=== PATIENT | female | born 1960 | race Caucasian/White ===

== ENCOUNTER 2022-11-06 11:44 | Emergency (ER) | payer OTHER, SELFPAY ==
[2022-11-06 11:56] VITALS: BP 122/72; PULSE 68; RESP 18; TEMP 36.3; O2SAT 100; BMI 19.1
--- NOTE | 2022-11-06 12:08 | CRLHL7_ITS ---
For Patients: As a result of the Century Cures Act, medical imaging exams and procedure reports are released immediately into your electronic medical record. You may view this report before your referring provider. If you have questions, please contact your health care provider. Indication: Distal radius pain after falling on outstretched hand Comparison: None available. Technique: AP, lateral, and oblique views right wrist were obtained. Findings: There is no displaced fracture or dislocation. There is subtle trabecular compaction of the distal radius. Degenerative changes of the radiocarpal joint and 1st carpometacarpal joints are appreciated. There is marginal osteophyte formation and subchondral sclerosis. There is mild carpal soft tissue swelling. Impression: There is no evidence of definite, displaced fracture. Mild carpal soft tissue swelling and degenerative changes of the wrist. On the oblique projection there is questionable subtle trabecular compaction which could represent a nondisplaced impaction fracture. Correlate with tenderness. Dictated by Aram Waters MD @ 11/06/2022 1:33:12 PM (Electronically Signed)
--- NOTE | 2022-11-06 14:10 | ED.NURSE ---
Cinch lock right arm brace applied by
--- NOTE | 2022-11-06 16:32 | ED.UPPEXIN ---
HPI - Extremity Injury (Upper) General Chief Complaint: Extremity Pain/Injury, Upper Stated Complaint: Fell last night, right hand injury Time Seen by Provider: 11/06/22 11:55 History of Present Illness HPI narrative: 62-year-old woman presenting to the emergency department with complaint of right wrist pain following a FOOSH type injury backward yesterday evening. Pain is continued. Describes a pain in her wrist not radiating distally but actually from the ulnar area up into the mid forearm sometimes. Supination and pronation apparently causes most discomfort. No other injuries were sustained in this fall on the ice. Does have a history of left wrist fracture requiring repair with what sounds like plate/pins. She has already taken ibuprofen about an hour prior to arrival here. Does not feel she needs anything for pain at this point. Related Data Home Medications Medication Instructions Recorded Confirmed furosemide 20 mg tablet mg 11/06/22 metoprolol succinate 50 mg mg PO 11/06/22 tablet,extended release 24 hr sumatriptan succinate 100 mg tablet mg PO 11/06/22 trazodone 50 mg tablet mg 11/06/22 venlafaxine 150 mg mg PO 11/06/22 capsule,extended release 24 hr Allergies Allergy/AdvReac Type Severity Reaction Status Date / Time No Known Drug Allergies Allergy Verified 11/06/22 11:55 Review of Systems Status of ROS: Reports: 6 or more systems reviewed and unremarkable except as noted in History and below [facility] Social History Smoking Status: Unknown if ever smoked Exam Narrative: Exam Narrative: Pleasant. NAD. Favoring her right wrist/arm. Has it on an icing pillow. Head looks to be atraumatic. Speaking fluidly. Breathing easily. Appears to be moving her right arm normally at the shoulder and elbow. Well-perfused peripherally. She is demonstrating movement of all her fingers. Is able to give a thumbs-up. More pain evidenced with supination or pronation. Pain is primarily at the distal most aspect of the radius toward the thumb side to palpation. Not over the distal ulna. She does not have snuffbox tenderness. There is no palmar or metacarpal tenderness. Mild swelling about the wrist. Const: Vital Signs, click to edit/add: Vital Signs - 24 hr 11/06/22 11:56 Temperature 97.4 F L Pulse Rate [Right Pulse Oximeter] 68 Respiratory Rate 18 Blood Pressure [Ri ght Upper Arm] 122/72 Pulse Oximetry 100 Oxygen Delivery Me thod Room Air Documenting provider has reviewed patient's vital signs: yes Course Vital Signs Vital signs: Initial Vital Signs Temperature 97.4 F L 11/06/22 11:56 Temperature Source Temporal Artery Scan 11/06/22 11:56 Pulse Rate 68 11/06/22 11:56 Respiratory Rate 18 11/06/22 11:56 Blood Pressure 122/72 11/06/22 11:56 Blood Pressure Mean 88 11/06/22 11:56 Blood Pressure Position Sitting 11/06/22 11:56 Pulse Oximetry 100 11/06/22 11:56 Oxygen Delivery Method 11/06/22 11:56 Vital Signs Temperature 97.4 F L 11/06/22 11:56 Pulse Rate 68 11/06/22 11:56 Respiratory Rate 18 11/06/22 11:56 Blood Pressure 122/72 11/06/22 11:56 Pulse Oximetry 100 11/06/22 11:56 Oxygen Delivery Method 11/06/22 11:56 Temperature 97.4 F L 11/06/22 11:56 Pulse Rate 68 11/06/22 11:56 Respiratory Rate 18 11/06/22 11:56 Blood Pressure 122/72 11/06/22 11:56 Pulse Oximetry 100 11/06/22 11:56 Oxygen Delivery Method 11/06/22 11:56 MDM - Extremity Injury (Upper) MDM Narrative Medical decision making narrative: Given the degree of discomfort she is having a would expect some degree of fracture. Ordered for three-view x-ray of the right wrist. Reviewed by me I think the lunate on the lateral view has a subtle lucency but I think this is probably vascular channel particular because she does not have pain in this area. There is a mild irregularity in the distal aspect of the radius I think quite suspicious for fracture. Most visible on the oblique view. Radiology over-read suspects potential trabecular fracture in the distal radius. I did discuss with Orthopedics on-call about cares specifically whether not this might be managed with a cinch lock wrist brace as opposed to dorsal volar splint. This is deemed acceptable with follow-up. I do place this splint. Says she feels better. Discharge Plan Discharge Clinical Impression: Distal radial fracture Patient Disposition: Home, Self-Care Condition: Stable Additional Instructions: I am not sure that you will need more than this splint as applied. Recommendations are to wear this splint with light activity of your right hand/wrist until follow-up appointment. I would anticipate follow up sometime between 10-14 days. Elevate and ibuprofen or acetaminophen for discomfort. You may remove the splint to ice your wrist a few times daily over the next few days if you like. If following up locally with orthopedics #[id number] Prescriptions: No Action trazodone 50 mg tablet Label Comments: TAKE 1 TABLET BY MOUTH DAILY AT BEDTIME. metoprolol succinate 50 mg tablet extended release 24 hr PO Label Comments: TAKE ONE TABLET BY MOUTH DAILY sumatriptan succinate 100 mg tablet PO Label Comments: TAKE ONE TABLET BY MOUTH NEEDED FOR MIGRAINE AT ONSET OF HEADACHE. MAY REPEAT ONE TIME IN 2 HOURS IF HEADACHE RECURS. venlafaxine 150 mg capsule,extended release 24hr PO Label Comments: TAKE ONE CAPSULE BY MOUTH EVERY DAY furosemide 20 mg tablet Label Comments: TAKE ONE-HALF TABLET BY MOUTH EVERY DAY Follow Up/Referrals: Provider,Not a Local [Primary Care Provider] - Stand Alone Forms: [employer] Info Instructions
== END 2022-11-06 14:28 | disposition home or self-care (01) ==
PROVIDERS: Emergency Provider Family Medicine
DX: S52.501A Unspecified fracture of the lower end of right radius, initial encounter for closed fracture (principal); W00.0XXA Fall on same level due to ice and snow, initial encounter; Y93.9 Activity, unspecified; Y92.9 Unspecified place or not applicable
CPT/HCPCS: 73110; 99283